=== PATIENT | female | born 1960 | race Caucasian/White ===

== ENCOUNTER → 2023-02-12 | Outpatient (CLI) | payer OTHER, SELFPAY ==
--- NOTE | 2023-02-12 13:55 | US_ITS ---
EXAM: US LEFT UPPER EXTREMITY NON-VASCULAR, COMPLETE CLINICAL INDICATION: skin lump of arm, left upper TECHNIQUE: Real-time ultrasound scan of the left upper extremity with image documentation. COMPARISON: No relevant prior studies available. FINDINGS: SOFT TISSUES: There is a mixed echogenic nodule in the subcutaneous tissues of the left upper arm that measures 5.3 x 4.8 x 2.0 cm. This has similar echogenicity to the surrounding subcutaneous tissues. No foreign body. US/Ext Non Vasc Limited/Soft Tiss IMPRESSION: Mixed echogenic area in the region of a palpable lump lobe lump that has similar echogenicity to the surrounding subcutaneous tissues and may represent a lipoma. Electronically Signed: Camilo Slaughter MD at 16:09 EST ,
== END | disposition home or self-care (01) ==
LOC: US 13:51
PROVIDERS: PCP Nurse Practitioner Family; Referring Provider Nurse Practitioner Family; Visit Provider Nurse Practitioner Family
DX: R22.32 Localized swelling, mass and lump, left upper limb (principal)
CPT/HCPCS: 76882